=== PATIENT | male | born 1995 | race Caucasian/White ===

== ENCOUNTER 2017-08-31 14:17 | Emergency (ER) | payer SELFPAY ==
[~2017-08-31] VITALS: Ht 165.1 cm; Wt 68.0 kg
[2017-08-31 17:58] VITALS: BP 103/57
== END 2017-08-31 18:00 | disposition home or self-care (01) ==
LOC: ER 14:29
DX: B02.9 Zoster without complications (principal)
CPT/HCPCS: 99283